=== PATIENT | female | born 1945 | race Caucasian/White ===

== ENCOUNTER 2017-11-22 01:24 | Inpatient (IN) | payer MEDICARE ==
[~2017-11-22] VITALS: Ht 167.6 cm; Wt 117.5 kg
[~2017-11-22 01:24] MED LIST: ALBU18HF INH; ALBU2.5V NEB; ASPI-621 PO; CALC-55 PO; CHOL200024 PO; FAMO40TA61 PO; FLUT1AER INH; FLUT1DIS3 INH; FLUT9.9S NAS; GABA-827 PO; LISI40TA PO; MELO15TA24 PO; METO25TA35 PO; MONT10TA9 PO; NYST15CR33 TP; SIMV40TA3 PO; TRAM50TA2 PO
[2017-11-22] MEDS ORDERED: methylPREDNISolone SOD SUCC 125 MG/2 ML ONE (01:28)
[2017-11-22] MEDS ORDERED: ACETAMINOPHEN 500 MG TABLET PO ONE (01:30)
[2017-11-22] MEDS ORDERED: SODIUM CHLORIDE FLUSH 10ML SYR IVF ONE (01:30)
[2017-11-22] MEDS ORDERED: ACETAMINOPHEN 500 MG TABLET ONE (01:31)
[2017-11-22] MEDS ORDERED: SODIUM CHLORIDE 0.9% 1,000ML IVBOLUS ONE (02:00)
[2017-11-22] MEDS ORDERED: PIPERACILLIN/TAZO/PMX 3.375GM 50 ML IVPB ONE (02:00)
[2017-11-22] MEDS ORDERED: VANCOMYCIN PER PHARMACY MC ONE (02:00)
[2017-11-22] MEDS ORDERED: PIPERACILLIN/TAZO/PMX 3.375GM 50 ML ONE (02:03)
[2017-11-22 02:09] LABS: MEAN CORPUSCULAR HEMOGLOBIN 27.5 pg (27.0-34.8); MEAN CORPUSCULAR VOLUME 85.9 fL (80-100); MEAN PLATELET VOLUME 8.6 fL (7.4-10.4); PLATELET COUNT 241 x10^3/uL (130-400); RED BLOOD COUNT 5.06 x10^6/uL (3.82-5.3)
[2017-11-22 02:20] LABS: ALANINE AMINOTRANSFERASE 34 U/L (12-78); ALBUMIN 3.4 g/dL (3.4-5.0); ANION GAP 10 mmol/L (5-15); CALCIUM 8.2 mg/dL (8.5-10.1); CHLORIDE 101 mmol/L (98-107); CREATININE 1.11 mg/dL (0.55-1.02)
[2017-11-22 02:25] LABS: ALKALINE PHOSPHATASE 112 U/L (45-117); BILIRUBIN,TOTAL 0.5 mg/dL (0.2-1.0); TOTAL PROTEIN 8.3 g/dL (6.4-8.2); TROPONIN I 0.098 ng/mL (0.000-0.045)
[2017-11-22 02:29] LABS: BASOPHILS # (AUTO) 0.02 x10^3/uL (0-0.1); BASOPHILS % (AUTO) 0 % (0-1); EOSINOPHILS % (AUTO) 2 % (1-7); LYMPHOCYTES # (AUTO) 0.85 x10^3/uL (1-3.4); LYMPHOCYTES % (AUTO) 4 % (22-44); MD NO; MONOCYTES # (AUTO) 0.52 x10^3/uL (0.2-0.8); MONOCYTES % (AUTO) 3 % (2-9); NEUTROPHILS # (AUTO) 18.04 x10^3/uL (1.8-6.8); NEUTROPHILS % (AUTO) 91 % (42-75)
[2017-11-22] MEDS ORDERED: VANCOMYCIN 2,000 MG in SODIUM CHLORIDE 0.9% 500 ML IV ONE (02:30)
[2017-11-22] MEDS ORDERED: VANCOMYCIN 2,100 MG in SODIUM CHLORIDE 0.9% 500 ML IV ONE (02:30)
[2017-11-22 02:32] LABS: RAPID INFLUENZA A Negative (Negative); RAPID INFLUENZA B Negative (Negative)
[2017-11-22] MEDS ORDERED: POLYETHYLENE GLYCOL 17 GM PACKET PO PRN (05:00)
[2017-11-22] MEDS ORDERED: morphine SULFATE 10 MG/ML, 1ML IVPush PRN (05:00)
[2017-11-22] MEDS ORDERED: ONDANSETRON 2MG/ML, 2ML IVPush PRN (05:00)
[2017-11-22] MEDS ORDERED: ENALAPRILAT 1.25 MG/ML, 2ML IVPush PRN (05:00)
[2017-11-22] MEDS ORDERED: hydrALAzine 20 MG/ML, 1ML IVPush PRN (05:00)
[2017-11-22] MEDS ORDERED: BISACODYL 10 MG SUPP PR PRN (05:00)
[2017-11-22 05:45] VITALS: BP 101/66
[2017-11-22] MEDS: CEFTRIAXONE PMX 2GM/50ML 50 ML IV SCH (06:24)
[2017-11-22] MEDS: METOPROLOL TARTRATE 25 MG TABLET PO SCH ×2 (06:25→16:37)
[2017-11-22] MEDS: HEPARIN 5,000 UNITS/ML, 1ML SQ SCH ×3 (06:25→20:59)
[2017-11-22] MEDS: ASPIRIN 81 MG TABLET EC PO SCH (06:26)
[2017-11-22 07:32] LABS: TROPONIN I 0.158 ng/mL (0.000-0.045)
[2017-11-22 07:35] VITALS: BP 102/53
[2017-11-22 07:38] LABS: FREE T4 (FREE THYROXINE) 1.02 ng/dL (0.76-1.46); THYROID STIMULATING HORMONE 0.796 mIU/L (0.358-3.740)
[2017-11-22] MEDS: ALBUTEROL SULFATE 2.5 MG/3 ML NEB SCH ×4 (07:50→19:02)
[2017-11-22 08:27] LABS: HEMOGLOBIN A1C 6.1 % (4.2-6.3)
[2017-11-22] MEDS: SENNA/DOCUSATE TABLET PO SCH (09:00)
[2017-11-22] MEDS ORDERED: GABAPENTIN 400 MG CAPSULE PO SCH ×2 (09:00→21:00)
[2017-11-22] MEDS ORDERED: MAGNESIUM SULFATE PMX 2GM/50ML 50 ML IV ONE (09:30)
[2017-11-22] MEDS: ACETAMINOPHEN 325 MG TABLET PO PRN (09:35)
[2017-11-22] MEDS: DOXYCYCLINE 100MG TABLET PO SCH ×2 (09:35→20:59)
[2017-11-22] MEDS: FUROSEMIDE 20 MG/2 ML IV SCH ×2 (09:36→16:37)
[2017-11-22 10:05] LABS: MICROSCOPIC AUTO
[2017-11-22 10:09] LABS: CULTURE INDICATED? YES
[2017-11-22] MEDS: FLUTICASONE/VILANTEROL 200-25MCG/INH INH SCH (12:25)
[2017-11-22] MEDS: CALCIUM/VITAMIN D3 250-125 TABLET PO SCH (12:26)
[2017-11-22] MEDS ORDERED: MELO15TA24 PO (12:36)
[2017-11-22 13:17] LABS: TROPONIN I 0.138 ng/mL (0.000-0.045)
[2017-11-22 13:30] VITALS: BP 105/57
[2017-11-22 16:00] VITALS: BP 124/74
[2017-11-22] MEDS: MELOXICAM 15 MG TABLET PO SCH (16:37)
[2017-11-22 18:51] VITALS: BP 113/66
[2017-11-22] MEDS ORDERED: FAMOTIDINE 40 MG TABLET PO SCH (21:00)
[2017-11-23 02:00] VITALS: BP 130/76
[2017-11-23] MEDS: ACETAMINOPHEN 325 MG TABLET PO PRN ×2 (02:32→13:02)
[2017-11-23 05:31] LABS: MEAN CORPUSCULAR HGB CONC 32.5 g/dL (32.4-35.8); MEAN CORPUSCULAR VOLUME 86.1 fL (80-100); MEAN PLATELET VOLUME 8.7 fL (7.4-10.4); PLATELET COUNT 213 x10^3/uL (130-400); RED BLOOD COUNT 4.17 x10^6/uL (3.82-5.3); RED CELL DISTRIBUTION WIDTH 14.6 % (9.6-15.2)
[2017-11-23 05:32] LABS: ALBUMIN 2.7 g/dL (3.4-5.0); ANION GAP 8 mmol/L (5-15); CALCIUM 8.3 mg/dL (8.5-10.1); CHLORIDE 103 mmol/L (98-107)
[2017-11-23 05:36] LABS: ALANINE AMINOTRANSFERASE 29 U/L (12-78); ALKALINE PHOSPHATASE 75 U/L (45-117); BILIRUBIN,TOTAL 0.5 mg/dL (0.2-1.0); CHOL/HDL RATIO 1.9; CHOLESTEROL, TOTAL 138 mg/dL (140-239); CREATININE 0.83 mg/dL (0.55-1.02); HDL CHOL % 51 % (28-40); HDL CHOLESTEROL (DIRECT) 71 mg/dL (40-60); LDL CHOLESTEROL,CALCULATED 54 mg/dL (54-169); LDL/HDL RATIO 0.8 (0.5-3.0); TOTAL PROTEIN 7.3 g/dL (6.4-8.2); TRIGLYCERIDES 67 mg/dL (50-200); VLDL CHOLESTEROL 13 mg/dL (0-25)
[2017-11-23] MEDS: HEPARIN 5,000 UNITS/ML, 1ML SQ SCH ×2 (05:45→12:51)
[2017-11-23] MEDS: CEFTRIAXONE PMX 2GM/50ML 50 ML IV SCH (05:46)
[2017-11-23] MEDS: METOPROLOL TARTRATE 25 MG TABLET PO SCH (05:46)
[2017-11-23] MEDS: ASPIRIN 81 MG TABLET EC PO SCH (05:46)
[2017-11-23 06:01] LABS: BASOPHILS # (AUTO) 0.01 x10^3/uL (0-0.1); BASOPHILS % (AUTO) 0 % (0-1); EOSINOPHILS # (AUTO) 0.21 x10^3/uL (0-0.4); EOSINOPHILS % (AUTO) 1 % (1-7); LYMPHOCYTES # (AUTO) 1.95 x10^3/uL (1-3.4); LYMPHOCYTES % (AUTO) 8 % (22-44); MD SCAN; MONOCYTES % (AUTO) 6 % (2-9); NEUTROPHILS # (AUTO) 20.16 x10^3/uL (1.8-6.8); NEUTROPHILS % (AUTO) 85 % (42-75)
[2017-11-23 06:46] VITALS: BP_SYST 121; BP_DIAS 47; BP_DIAS 57
[2017-11-23] MEDS: ALBUTEROL SULFATE 2.5 MG/3 ML NEB SCH ×2 (07:15→11:20)
[2017-11-23] MEDS: MELOXICAM 15 MG TABLET PO SCH (08:03)
[2017-11-23] MEDS: DOXYCYCLINE 100MG TABLET PO SCH (08:03)
[2017-11-23] MEDS: FUROSEMIDE 20 MG/2 ML IV SCH (08:04)
[2017-11-23] MEDS: FLUTICASONE/VILANTEROL 200-25MCG/INH INH SCH (08:04)
[2017-11-23] MEDS: SENNA/DOCUSATE TABLET PO SCH (08:18)
[2017-11-23 12:17] VITALS: BP 138/80
[2017-11-23] MEDS: CALCIUM/VITAMIN D3 250-125 TABLET PO SCH (12:51)
[2017-11-23] MEDS ORDERED: PRED5TAB PO (15:38)
[2017-11-23] MEDS ORDERED: SENN1TAB7 PO (15:38)
[2017-11-23] MEDS ORDERED: CEFD300C37 PO (15:38)
[2017-11-23] MEDS ORDERED: FURO40TA6 PO (15:38)
[2017-11-23] MEDS ORDERED: DOXY100T10 PO (15:38)
[2017-11-23] MEDS ORDERED: FLUT1BLS INH (15:38)
[2017-11-23] MEDS ORDERED: MAGN64TA7 PO (15:43)
[2017-11-23] MEDS ORDERED: POTA20TA91 PO (15:43)
[2017-11-23] MEDS ORDERED: ATOR20TA9 PO (15:49)
[2017-11-23] MEDS ORDERED: ALBU2.5V NEB (16:30)
== END 2017-11-23 19:48 | disposition home or self-care (01) | DRG 871 ==
LOC: ED 02:05 → EDIP 03:36 → 4WST 04:53
PROVIDERS: ADMIT Internal Medicine; ATTEND Internal Medicine
PROC: 5A09357 Assistance with Respiratory Ventilation, Less than 24 Consecutive Hours, Continuous Positive Airway Pressure (ICD-10-PCS; principal; 2017-11-22)
DX: A41.9 Sepsis, unspecified organism (principal); J18.9 Pneumonia, unspecified organism; J96.21 Acute and chronic respiratory failure with hypoxia; I21.A1 Myocardial infarction type 2; I50.33 Acute on chronic diastolic (congestive) heart failure; N17.0 Acute kidney failure with tubular necrosis; G93.40 Encephalopathy, unspecified; I11.0 Hypertensive heart disease with heart failure; J44.0 Chronic obstructive pulmonary disease with (acute) lower respiratory infection; J44.1 Chronic obstructive pulmonary disease with (acute) exacerbation; Z68.41 Body mass index [BMI] 40.0-44.9, adult; M19.90 Unspecified osteoarthritis, unspecified site; G62.9 Polyneuropathy, unspecified; E66.9 Obesity, unspecified; I25.10 Atherosclerotic heart disease of native coronary artery without angina pectoris; I35.0 Nonrheumatic aortic (valve) stenosis; M47.816 Spondylosis without myelopathy or radiculopathy, lumbar region; Z79.82 Long term (current) use of aspirin; Z87.891 Personal history of nicotine dependence; I25.2 Old myocardial infarction; Z90.710 Acquired absence of both cervix and uterus; Z98.49 Cataract extraction status, unspecified eye; Z88.0 Allergy status to penicillin; Z88.5 Allergy status to narcotic agent; Z88.1 Allergy status to other antibiotic agents; Z79.899 Other long term (current) drug therapy
CPT/HCPCS: 36415; 36600; 71045; 80053; 80061; 81001; 82803; 83036; 83605; 83735; 83880; 84145; 84439; 84443; 84484; 85025; 87040; 87070; 87086; 87205; 87400; 93005; 93306; 94640; 94660; 96365; 96366; 96368; J0696; J1644; J2543; J3370; J7613; J1940; J3475; J7030; J7040; J7512

== ENCOUNTER → 2018-05-22 | Outpatient (CLI) | payer MEDICARE ==
[~2018-05-22] MED LIST changes: +ATOR20TA9 PO; +CEFD300C37 PO; +DOXY100T10 PO; +FLUT1BLS INH; +FURO40TA6 PO; +MAGN64TA7 PO; +POTA20TA91 PO; +PRED5TAB PO; +SENN1TAB7 PO
== END | disposition home or self-care (01) ==
LOC: CFH 09:16
PROVIDERS: ATTEND Licensed Practical Nurse
DX: Z12.31 Encounter for screening mammogram for malignant neoplasm of breast (principal); Z13.820 Encounter for screening for osteoporosis; M85.88 Other specified disorders of bone density and structure, other site; N95.8 Other specified menopausal and perimenopausal disorders
CPT/HCPCS: 77063; 77080; 77067

== ENCOUNTER → 2019-02-24 | Outpatient (CLI) | payer MEDICARE ==
[~2019-02-24] MED LIST changes: -ASPI-621 PO; +ASPI81TA45 PO; +ATOR20TA37 PO; -ATOR20TA9 PO; +SENN-177 PO; -SENN1TAB7 PO
== END | disposition home or self-care (01) ==
LOC: CFH 13:17
PROVIDERS: ATTEND Internal Medicine Critical Care Medicine
DX: J43.2 Centrilobular emphysema (principal); R91.1 Solitary pulmonary nodule
CPT/HCPCS: 71250